=== PATIENT | female | born 1970 | race Caucasian/White ===

== ENCOUNTER 2016-08-06 11:14 | Emergency (ER) | payer MEDICAID ==
--- NOTE | 2016-08-06 11:51 | C.PDOC ---
History Of Present Illness 46 y/o female presents to the ED with complains of vaginal bleeding and pelvic pain x4 days. Pt is 2 years menopausal. Symptoms are similar to when she had menses in the past. Vaginal bleeding has since resolved but still has pelvic pain. Pt denies fever, headache, vomiting, diarrhea or any other complaints. No PMHx. Chief Complaint (Nursing): Female Genitourinary History Per: Patient History/Exam Limitations: no limitations Onset/Duration Of Symptoms: Days Current Symptoms Are (Timing): Still Present Severity: Moderate Quality Of Discomfort: "Pain" Associated Symptoms: denies: Fever, Vomiting, Diarrhea, Urinary Symptoms Alleviating Factors: None Recent travel outside of the [place]: No Past Medical History Reviewed: Historical Data, Nursing Documentation, Vital Signs Vital Signs: Last Vital Signs Temp 98.2 F 08/06/16 14:25 Pulse 76 08/06/16 14:25 Resp 17 08/06/16 14:25 BP 120/81 08/06/16 14:25 Pulse Ox 98 08/06/16 14:25 Surgical History: Appendectomy Family History: States: Unknown Family Hx - Social History Hx Alcohol Use: No Hx Substance Use: No - Immunization History Hx Tetanus Toxoid Vaccination: No Hx Influenza Vaccination: No Hx Pneumococcal Vaccination: No Review Of Systems Except As Marked, All Systems Reviewed And Found Negative. Constitutional: Negative for: Fever Gastrointestinal: Negative for: Vomiting, Diarrhea Genitourinary: Positive for: Vaginal Bleeding (resolved), Pelvic Pain. Negative for: Dysuria Physical Exam - Physical Exam Appears: Non-toxic, No Acute Distress Skin: Warm, Dry, No Rash Head: Atraumatic, Normacephalic Cardiovascular: Rhythm Regular, No Murmur Respiratory: Normal Breath Sounds, No Rales, No Rhonchi, No Wheezing Gastrointestinal/Abdominal: Soft, Tenderness (mild suprapubic), No Guarding, No Rebound Extremity: Bilateral: Atraumatic Neurological/Psych: Oriented x3 ED Course And Treatment - Laboratory Results Result Diagrams: 08/06/16 12:04 08/06/16 12:04 - CT Scan/US Pelvic US Other Rad Studies (CT/US): Read By Radiologist, Radiology Report Reviewed CT/US Interpretation: Accession No. : [id number]. Patient Name / ID : PIYUSH FERRER V / [id number]. Exam Date : 08/06/2016 13:03:02 ( Approved ) . Study Comment : Sex / Age : F / 46Y. Creator : Zheng Reyes MD. Dictator : Zheng Reyes MD. Inspecting Machine Adjuster : Engineering Supplies Sales : Zheng Reyes MD. Approver2 : Report Date : 08/06/2016 14:45:00. My Comment : . PROCEDURE: Pelvic ultrasound 08/06/2016. HISTORY: pelvic pain, post menopausal bleeding. COMPARISON: Comparison made with pelvic ultrasound 2015. TECHNIQUE: Transabdominal / transvaginal sonographic evaluation of the pelvis performed. FINDINGS: The uterus retroverted measuring approximately 8.3 x 5.4 x 5.7 cm no obvious myometrial masses. Endometrial stripe measures 7.1 mm. . There is a small amount of free fluid in the cul de sac. Right ovary measures approximately 6.3 x 5.0 x 4.5 cm. Left ovary exhibits arterial flow. Complex right ovarian cyst measuring 6.3 x 5.0 x 3.7 cm. Recommend UPHOLSTERY TECHNICIAN consultation. Consider follow-up MRI of the female pelvis right ovary exhibits. Right ovary measures 4.7 x 4.0 x 4.8 cm. Left ovary exhibits arterial flow. Simple appearing cyst left ovary measuring 4.1 x 3.1 x 4.1 cm. IMPRESSION: Complex right ovarian cyst. Recommend UPHOLSTERY TECHNICIAN consultation Consider followup MRI of the female pelvis for further evaluation. Small amount of free fluid seen in the cul de sac Medical Decision Making Medical Decision Making: Plan: labs, pelvic US, UA, IV fluids. Patient refused to stay for MRI. She sts she already has an appointment with OBGYN and wants to be d/c home. Patient was explained the necessity of follow up to rule out endomentrial/ovarian cancer. Patient verbalized understanding. Copies of lab and US reports were given to the patient. Disposition - Disposition Disposition: HOME/ ROUTINE Disposition Time: 14:24 Condition: STABLE Additional Instructions: Follow up with PMD and OBGYN within 1-2 days. Return to ED if feel worse. Instructions: Dysfunctional Uterine Bleeding (ED) - Clinical Impression Clinical Impression: Post-menopausal bleeding - PA / VESSEL SPECIALIST / Resident Statement MD/DO has reviewed & agrees with the documentation as recorded. - Scribe Statement The provider has reviewed the documentation as recorded by the Scribcatarino Dunn All medical record entries made by the Zaidaibcatarino were at my direction and personally dictated by me. I have reviewed the chart and agree that the record accurately reflects my personal performance of the history, physical exam, medical decision making, and the department course for this patient. I have also personally directed, reviewed, and agree with the discharge instructions and disposition.
[2016-08-06 12:10] LABS: BASO % 0.5 % (0.0-2.0); EOS % 0.6 % (0.0-4.0); HEMATOCRIT 43.2 % (34.0-47.0); LYMPH # 1.5 K/uL (1.0-4.3); LYMPH % 22.4 % (20.0-40.0); MEAN CELL VOLUME 95.5 fL (81.0-99.0); MEAN CORPUSCULAR HGB CONC 33.5 g/dL (33.0-37.0); MEAN PLATELET VOLUME 9.6 fL (7.2-11.7); MONO # 0.3 K/uL (0.0-0.8); RED CELL DISTRIBUTION WIDTH 13.8 % (11.5-14.5); WHITE BLOOD COUNT 6.9 K/uL (4.8-10.8)
[2016-08-06 12:15] LABS: RBC URINE 1 /hpf (0-3); URINE BACTERIA RARE (<OCC); URINE BILIRUBIN NEGATIVE (NEGATIVE); URINE BLOOD 2+ (NEGATIVE); URINE COLOR Yellow (YELLOW); URINE GLUCOSE (UA) NORMAL (Normal); URINE KETONE NEGATIVE (NEGATIVE); URINE LEUKOCYTE ESTERASE TRACE Leu/uL (Negative); URINE PROTEIN NEGATIVE (NEGATIVE); URINE UROBILINOGEN NORMAL mg/dL (0.2-1.0); WBC URINE 2 /hpf (0-5)
[2016-08-06 12:27] LABS: CHLORIDE 104 mmol/L (98-107); POTASSIUM 4.3 mmol/L (3.6-5.2); SODIUM 142 mmol/L (132-148)
[2016-08-06 12:29] LABS: BILIRUBIN,TOTAL 0.3 mg/dL (0.2-1.3); GFR AFRICAN-AMERICAN > 60
[2016-08-06 12:30] LABS: ALB/GLOB RATIO 1.6 (1.0-2.1); ALKALINE PHOSPHATASE 49 U/L (38-126); ALT/SGPT 17 U/L (9-52); AST/SGOT 21 U/L (14-36); BLOOD UREA NITROGEN 9 mg/dL (7-17); CALCIUM 8.7 mg/dl (8.6-10.4); CARBON DIOXIDE 27 mmol/L (22-30); GLUCOSE,RANDOM 75 mg/dL (65-105); TOTAL PROTEIN 6.9 g/dL (6.3-8.3)
[2016-08-06 12:50] LABS: FSH 33.2 mIU/mL
[2016-08-06 13:00] LABS: THYROID STIMULATING HORMONE 3.46 mIU/L (0.46-4.68)
[2016-08-06 14:26] VITALS: BP 120/81; PULSE 76; RESP 17; TEMP 98.2; O2SAT 98
--- NOTE | 2016-08-06 14:46 | US ---
PROCEDURE: Pelvic ultrasound 08/06/2016 HISTORY: pelvic pain, post menopausal bleeding COMPARISON: Comparison made with pelvic ultrasound 08/15/2015 TECHNIQUE: Transabdominal / transvaginal sonographic evaluation of the pelvis performed FINDINGS: The uterus retroverted measuring approximately 8.3 x 5.4 x 5.7 cm no obvious myometrial masses. Endometrial stripe measures 7.1 mm. . There is a small amount of free fluid in the cul de sac. Right ovary measures approximately 6.3 x 5.0 x 4.5 cm. Left ovary exhibits arterial flow. Complex right ovarian cyst measuring 6.3 x 5.0 x 3.7 cm. Recommend VOICE NETWORK ENGINEER consultation. Consider follow-up MRI of the female pelvis right ovary exhibits Right ovary measures 4.7 x 4.0 x 4.8 cm. Left ovary exhibits arterial flow. Simple appearing cyst left ovary measuring 4.1 x 3.1 x 4.1 cm. IMPRESSION: Complex right ovarian cyst. Recommend VOICE NETWORK ENGINEER consultation Consider followup MRI of the female pelvis for further evaluation. Small amount of free fluid seen in the cul de sac
== END 2016-08-06 14:29 | disposition home or self-care (01) ==
LOC: C.ER 11:14
DX: N95.0 Postmenopausal bleeding (principal)

== ENCOUNTER 2018-06-27 11:17 | Emergency (ER) | payer MEDICAID ==
[2018-06-27] MEDS ORDERED: Dexamethasone 4 mg/1 ml IVP STA (12:20)
[2018-06-27 12:52] LABS: HCG,QUALITATIVE URINE NEGATIVE (NEGATIVE)
[2018-06-27 12:56] LABS: URINE BILIRUBIN NEGATIVE (NEGATIVE); URINE BLOOD NEGATIVE (NEGATIVE); URINE CLARITY Clear (Clear); URINE COLOR Yellow (YELLOW); URINE GLUCOSE (UA) NORMAL (Normal); URINE LEUKOCYTE ESTERASE NEG Leu/uL (Negative); URINE PROTEIN NEGATIVE (NEGATIVE); URINE UROBILINOGEN NORMAL mg/dL (0.2-1.0)
[2018-06-27] MEDS ORDERED: Dexamethasone 4 mg/1 ml ONE (13:14)
--- NOTE | 2018-06-27 13:32 | C.PDOC ---
History Of Present Illness 48 y/o female presents to the ER complaining of back pain which began 5 days becoming worse over the past 2 days. Patient states that the pain radiates down bilateral legs(R>L). Patient reports that she has weakness and numbness in her right leg. She notes that she did not take any medications for the pain. 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 Time Seen by Provider: 06/27/18 11:22 Chief Complaint (Nursing): Back Pain History Per: Patient History/Exam Limitations: no limitations Onset/Duration Of Symptoms: Days Current Symptoms Are (Timing): Still Present Severity: Moderate Past Medical History Reviewed: Historical Data, Nursing Documentation, Vital Signs Vital Signs: Last Vital Signs Temp 98.6 F 06/27/18 11:37 Pulse 74 06/27/18 11:37 Resp 18 06/27/18 11:37 BP 106/73 06/27/18 11:37 Pulse Ox 100 06/27/18 11:37 - Medical History PMH: No Chronic Diseases Surgical History: Appendectomy Family History: States: No Known Family Hx - Social History Hx Alcohol Use: No Hx Substance Use: No - Immunization History Hx Tetanus Toxoid Vaccination: No Hx Influenza Vaccination: No Hx Pneumococcal Vaccination: No Review Of Systems Except As Marked, All Systems Reviewed And Found Negative. Genitourinary: Negative for: Dysuria, Incontinence, Hematuria Musculoskeletal: Positive for: Back Pain Neurological: Positive for: Weakness (right leg), Numbness (right leg) Physical Exam - Physical Exam Appears: Non-toxic, No Acute Distress Skin: Normal Color, Warm, Dry Head: Atraumatic, Normacephalic Eye(s): bilateral: Normal Inspection Nose: Normal Oral Mucosa: Moist Neck: Supple Chest: Symmetrical Cardiovascular: Rhythm Regular Respiratory: Normal Breath Sounds, No Rales, No Rhonchi, No Wheezing Gastrointestinal/Abdominal: Normal Exam, Soft, No Tenderness, No Guarding, No Rebound Back: Paraspinal Tenderness (lumbar paraspinal tenderness) Extremity: Normal ROM, Tenderness (tenderness in bilateral buttocks and posterior thighs) Neurological/Psych: Oriented x3, Normal Speech, No Normal Motor (decreased reflex in right leg), No Normal Sensation (decreased sensation in right leg), Other ED Course And Treatment - Laboratory Results Result Diagrams: 06/27/18 13:41 06/27/18 13:41 Lab Results: Urine Color Yellow (YELLOW) 06/27/18 12:44 Urine Clarity Clear (Clear) 06/27/18 12:44 Urine pH 5.0 (5.0-8.0) 06/27/18 12:44 Ur Specific Pinch 1.011 (1.003-1.030) 06/27/18 12:44 Urine Protein Negative mg/dL (NEGATIVE) 06/27/18 12:44 Urine Glucose (UA) Normal mg/dL (Normal) 06/27/18 12:44 Urine Ketones Negative mg/dL (NEGATIVE) 06/27/18 12:44 Urine Blood Negative (NEGATIVE) 06/27/18 12:44 Urine Nitrate Negative (NEGATIVE) 06/27/18 12:44 Urine Bilirubin Negative (NEGATIVE) 06/27/18 12:44 Urine Urobilinogen Normal mg/dL (0.2-1.0) 06/27/18 12:44 Ur Leukocyte Esterase Neg Sarina/uL (Negative) 06/27/18 12:44 Urine RBC (Auto) < 1 /hpf (0-3) 06/27/18 12:44 Urine HCG, Qual Negative (NEGATIVE) 06/27/18 12:44 Urine HCG, Qual Negative (NEGATIVE) 06/27/18 12:44 O2 Sat by Pulse Oximetry: 100 (RA) Pulse Ox Interpretation: Normal - Other Rad LS spine xray X-Ray: Viewed By Me, Read By Radiologist Interpretation: Accession No. : [id number]. Patient Name / ID : PIYUSH FERRER V / [id number]. Exam Date : 06/27/2018 12:22:29 ( Approved ). Study Comment : Sex / Age : F / 48Y. Creator : Tabitha Ponce MD. Dictator : Tabitha Ponce MD. Mill Controller : Software Asset Management Analyst : Tabitha Ponce MD. Approver2 : Report Date : 06/27/2018 16:59:01. My Comment : . Date of service: 06/27/2018. PROCEDURE: Radiographs of the Lumbar Spine. HISTORY: atraumatic pain. COMPARISON: CT abdomen and pelvis with contrast performed 08/15/15. FINDINGS: BONES: Alignment appears satisfactory. No listhesis. No acute displaced fracture identified. Degenerative changes with small anterior osteophyte formation. DISC SPACES: Unremarkable. OTHER FINDINGS: None. IMPRESSION: Mild degenerative changes. - CT Scan/US LS spine MRI Other Rad Studies (CT/US): Read By Radiologist, Radiology Report Reviewed CT/US Interpretation: Accession No. : [id number]. Patient Name / ID : PIYUSH FERRER V / [id number]. Exam Date : 06/27/2018 15:44:12 ( Approved ). Study Comment : Sex / Age : F / 48Y. Creator : Danilo Fields MD. Dictator : Danilo Fields MD. Mill Controller : Software Asset Management Analyst : Danilo Fields MD. Approver2 : Report Date : 06/27/2018 17:05:52. My Comment : . Date of service: 06/27/2018. PROCEDURE: MR LUMBAR SPINE WITH AND WITHOUT CONTRAST. HISTORY: severe LB pain, weakness/ numbness to RLE. COMPARISON: Lumbar spine radiographs 06/27/2018. TECHNIQUE: Multiecho multiplanar sequences were performed through the lumbar spine with and without the use of intravenous contrast (Omniscan 14 cc). FINDINGS: Normal lumbar curvature is appreciate. There is no fracture or spondylolisthesis identified. Limited multilevel spondylosis apparent. No suspicious matter signal change identified. Early endplate degenerative changes are developing at the L5-S1 level with L5-S1 intervertebral disc diminished in height. Remaining intervertebral disc heights are normal with multilevel disc desiccation appreciated throughout the lumbar spine, seen worst at the L4-5 level. The conus medullaris terminates at the inferior endplate of L1 with visualized prevertebral and paraspinal soft tissues appearing diffusely unremarkable. No suspicious epidural or intrathecal enhancement identified following intravenous gadolinium administration. T12-L1: No disc herniation, spinal canal stenosis or neural foraminal narrowing. L1-2: There is a tiny right paracentral disc protrusion without significant stenosis resulting. A circumferential disc bulge is mild and underlies this finding overall. No neural foraminal stenosis bilaterally. L2-3: No disc herniation, spinal canal stenosis or neural foraminal narrowing. L3-4: No disc herniation. A mild circumferential disc bulge is appreciated with facet joint arthropathy combining to cause limited bilateral lateral recess stenosis but no generalized central canal stenosis. No significant neural foraminal stenosis bilaterally. L4-5: A circumferential disc bulge appears [id number] size with a posterior annular tear but no disc herniation. The ventral thecal sac is inverted. Facet arthropathy appears moderate and combines with disc bulging to the stenose the lateral recesses somewhat but without significant generalized central central canal stenosis. No neural foraminal stenosis. L5-S1: Minimal circumferential disc bulge without disc herniation. Small annular tear is identified posteriorly. Facet arthropathy appears mild to moderate and encroaches descending bilateral S1 or nerve roots without stenosis. No neural foraminal stenosis. OTHER FINDINGS: None. IMPRESSION: 1. A tiny right paracentral disc protrusion is seen overlying a mild but circumferential disc bulge at L1-2 without significant stenosis resulting. 2. No moderate or high-grade stenosis throughout the exam. 3. Annular tear is associated with disc bulges at L4-5 and L5-S1. Multilevel facet joint arthropathy is appreciated. 4. No abnormal intrathecal or epidural enhancement. Medical Decision Making Medical Decision Making: Plan: --Labs --UA --Decadron IV --Toradol IV --Valium PO --H-Yva-Tgopbt Spine --MRI-Lumbar Spinal On re-evaluation patient feels better, ambulatory. Patient is stable to be d/c home with PMD/Clinic follow up. Disposition - Disposition Disposition: HOME/ ROUTINE Disposition Time: 17:40 Condition: STABLE Additional Instructions: Follow up with PMD within 1-2 days. Return to ED if feel worse. Prescriptions: Docusate [Colace] 100 mg PO BID #30 cap Lidocaine 5% [Lidoderm] 1 patch TP DAILY #30 patch Ibuprofen [Motrin Tab] 600 mg PO Q8 #30 tab oxyCODONE/Acetaminophen [Percocet 5/325 mg Tab] 1 tab PO QID PRN #20 tab PRN Reason: Pain predniSONE [predniSONE Tab] 2 tab PO DAILY #8 tab diaZEpam [Valium] 2 mg PO TID #15 tab Instructions: Sciatica Forms: Tunep[employer]o (Pashto) - Clinical Impression Clinical Impression: Sciatica - PA / CASTING FINISHER / Resident Statement MD/DO has reviewed & agrees with the documentation as recorded. - Scribe Statement The provider has reviewed the documentation as recorded by the Mini Chahal Provider Attestation All medical record entries made by the Zaidaibcatarino were at my direction and personally dictated by me. I have reviewed the chart and agree that the record accurately reflects my personal performance of the history, physical exam, medical decision making, and the department course for this patient. I have also personally directed, reviewed, and agree with the discharge instructions and disposition.
[2018-06-27 13:48] LABS: BASO % 0.3 % (0.0-2.0); EOS % 0.2 % (0.0-4.0); HEMOGLOBIN 14.6 g/dL (11.0-16.0); LYMPH # 1.8 K/uL (1.0-4.3); LYMPH % 29.5 % (20.0-40.0); MEAN CELL VOLUME 95.4 fL (81.0-99.0); MEAN CORPUSCULAR HEMOGLOBIN 31.7 pg (27.0-31.0); MEAN CORPUSCULAR HGB CONC 33.3 g/dL (33.0-37.0); MEAN PLATELET VOLUME 10.3 fL (7.2-11.7); MONO # 0.2 K/uL (0.0-0.8); MONO % 3.9 % (0.0-10.0); NEUT # 4.1 K/uL (1.8-7.0); NEUT % 66.1 % (50.0-75.0); RBC 4.59 Mil/uL (3.80-5.20); RED CELL DISTRIBUTION WIDTH 12.8 % (11.5-14.5); WHITE BLOOD COUNT 6.1 K/uL (4.8-10.8)
[2018-06-27 14:05] LABS: ALB/GLOB RATIO 1.8 (1.0-2.1); ALBUMIN 4.5 g/dL (3.5-5.0); ALT/SGPT 13 U/L (9-52); AST/SGOT 17 U/L (14-36); BLOOD UREA NITROGEN 15 mg/dL (7-17); CALCIUM 9.5 mg/dl (8.6-10.4); GFR NON-AFRICAN AMERICAN > 60
[2018-06-27] MEDS ORDERED: Lidocaine 5% Patch TD STA (16:44)
[2018-06-27] MEDS ORDERED: Lidocaine 5% Patch TD ONE (16:59)
--- NOTE | 2018-06-27 17:02 | RAD ---
Date of service: 06/27/2018 PROCEDURE: Radiographs of the Lumbar Spine. HISTORY: atraumatic pain COMPARISON: CT abdomen and pelvis with contrast performed 08/15/15 FINDINGS: BONES: Alignment appears satisfactory. No listhesis. No acute displaced fracture identified. Degenerative changes with small anterior osteophyte formation. DISC SPACES: Unremarkable. OTHER FINDINGS: None. IMPRESSION: Mild degenerative changes.
--- NOTE | 2018-06-27 17:09 | MRI ---
Date of service: 06/27/2018 PROCEDURE: MR LUMBAR SPINE WITH AND WITHOUT CONTRAST HISTORY: severe LB pain, weakness/ numbness to RLE COMPARISON: Lumbar spine radiographs 06/27/2018. TECHNIQUE: Multiecho multiplanar sequences were performed through the lumbar spine with and without the use of intravenous contrast (Omniscan 14 cc). FINDINGS: Normal lumbar curvature is appreciate. There is no fracture or spondylolisthesis identified. Limited multilevel spondylosis apparent. No suspicious matter signal change identified. Early endplate degenerative changes are developing at the L5-S1 level with L5-S1 intervertebral disc diminished in height. Remaining intervertebral disc heights are normal with multilevel disc desiccation appreciated throughout the lumbar spine, seen worst at the L4-5 level. The conus medullaris terminates at the inferior endplate of L1 with visualized prevertebral and paraspinal soft tissues appearing diffusely unremarkable. No suspicious epidural or intrathecal enhancement identified following intravenous gadolinium administration. T12-L1: No disc herniation, spinal canal stenosis or neural foraminal narrowing. L1-2: There is a tiny right paracentral disc protrusion without significant stenosis resulting. A circumferential disc bulge is mild and underlies this finding overall. No neural foraminal stenosis bilaterally. L2-3: No disc herniation, spinal canal stenosis or neural foraminal narrowing. L3-4: No disc herniation. A mild circumferential disc bulge is appreciated with facet joint arthropathy combining to cause limited bilateral lateral recess stenosis but no generalized central canal stenosis. No significant neural foraminal stenosis bilaterally. L4-5: A circumferential disc bulge appears [id number] size with a posterior annular tear but no disc herniation. The ventral thecal sac is inverted. Facet arthropathy appears moderate and combines with disc bulging to the stenose the lateral recesses somewhat but without significant generalized central central canal stenosis. No neural foraminal stenosis. L5-S1: Minimal circumferential disc bulge without disc herniation. Small annular tear is identified posteriorly. Facet arthropathy appears mild to moderate and encroaches descending bilateral S1 or nerve roots without stenosis. No neural foraminal stenosis. OTHER FINDINGS: None. IMPRESSION: 1. A tiny right paracentral disc protrusion is seen overlying a mild but circumferential disc bulge at L1-2 without significant stenosis resulting. 2. No moderate or high-grade stenosis throughout the exam. 3. Annular tear is associated with disc bulges at L4-5 and L5-S1. Multilevel facet joint arthropathy is appreciated. 4. No abnormal intrathecal or epidural enhancement.
[2018-06-27 18:37] VITALS: BP 99/66; PULSE 89; RESP 20; TEMP 98.1
[2018-06-27 22:36] VITALS: O2SAT 100
== END 2018-06-27 18:36 | disposition home or self-care (01) ==
LOC: C.ER 11:17
DX: M54.30 Sciatica, unspecified side (principal)
CPT/HCPCS: 72100; 72158; 80053; 81001; 84703; 85025; 96374; 96375; 99284; J1100; J1885